=== PATIENT | male | born 1950 | race Caucasian/White ===

== ENCOUNTER 2023-04-02 01:38 | Emergency (ER) | payer MEDICARE, OTHER, SELFPAY ==
[2023-04-02] MEDS ORDERED: Ipratropium/Albuterol 3 ML NEB ONE (03:56)
[2023-04-02 04:01] LABS: #Monocytes 0.4 thou/uL (0.11-0.59); #Neutrophils 12.3 thou/uL (1.40-6.50); %Basophils 0.3 % (0.0-1.0); %Eosinophils 0.1 % (0.0-10.0); %Neutrophils 93.4 % (42.0-75.0); Hematocrit 42.2 % (36.0-47.0); Hemoglobin 12.5 g/dL (12.0-16.0); Mean Corpuscular HGB CONC 29.6 g/dL (32.0-36.0); Mean Corpuscular Hemoglobin 28.4 pg (27.0-31.0); Mean Corpuscular Volume 95.9 fl (78.0-98.0); Mean Platelet Volume 10.5 fL (7.4-10.4); Platelet Count 270 10x3/uL (130-400); RBC Distribution Width 14.6 % (11.5-14.5); White Blood Cell (WBC) Count 13.1 10x3/uL (4.8-10.8)
[2023-04-02 04:20] LABS: ALT (SGPT) 10 U/L (8-55); AST (SGOT) 79 U/L (5-34); Albumin 3.7 g/dL (3.4-4.8); Alkaline Phosphatase 119 U/L (40-110); BUN (Urea Nitrogen) 10 mg/dL (9.8-20.1); Bilirubin, Total 0.5 mg/dL (0.2-1.2); Calc. Creatinine Clearance 0 mL/min (70-130); Estimated GFR 93; Globulin 3.4 g/dL (2.4-3.5); Glucose 136 mg/dL (83-110); Protein, Total 7.1 g/dL (5.8-8.1)
[2023-04-02 05:00] LABS: SARS-CoV-2 NAA Rapid Test Not Detected (NotDetected)
[2023-04-02 05:13] LABS: Anion Gap 21 mmol/L (10-20); Carbon Dioxide 33 mmol/L (23-31); Chloride 92 mmol/L (98-107); Potassium 4.3 mmol/L (3.5-5.1); Sodium 142 mmol/L (136-145)
[2023-04-02 05:21] LABS: Troponin I 0.024 ng/mL (< 0.028)
[2023-04-02] MEDS ORDERED: Sodium Chloride 0.9% 100 ML ONE (06:25)
[2023-04-02] MEDS ORDERED: cefTRIAXone (ROCEPHIN) 1 GM VIAL ONE (06:25)
[2023-04-02 06:39] LABS: Actual Bicarbonate (HCO3v) 33.4 mEq/L (22-28); Base Excess 7.5 mEq/L (-2.0 to +3.0); Calcium, Ionized (venous) 1.17 mmol/L (1.16-1.32); Chloride (VBG) 94 mmol/L (98-106); Hematocrit-VBG 40 % (42.0-52.0); Hemoglobin (Hb) 13.5 g/dL (12.6-17.4); Potassium (VBG) 4.01 mmol/L (3.70-5.30); Sodium 141 mmol/L (133-146); pH (venous) 7.423 (7.32-7.43)
[2023-04-02] MEDS ORDERED: Azithromycin 500 MG VIAL ONE (07:50)
[2023-04-02] MEDS ORDERED: Iopamidol-370 76% 500 ML MDV (1 ML CHARGE) ONE (12:20)
== END 2023-04-02 08:49 | disposition short-term general hospital (02) ==
LOC: EDSEX 01:38 → ERS 01:38
DX: A41.9 Sepsis, unspecified organism (principal); J18.9 Pneumonia, unspecified organism; R22.1 Localized swelling, mass and lump, neck; D49.89 Neoplasm of unspecified behavior of other specified sites
CPT/HCPCS: 0240U; 71275; 80053; 82805; 83605; 83880; 84484; 85025; 87040; 93005; 94640; 96365; 96367; 99285; J0456; 36415; J0696; J3490; J7620; Q9967